=== PATIENT | female | born 1940 | race Two or more races ===

== ENCOUNTER 2020-04-14 15:40 | Outpatient (CLI) | payer OTHER | END 2020-04-14 15:48 | disposition home or self-care (01) | LOC: RAD 15:40 | PROVIDERS: ATTEND Specialist | DX: N20.0 Calculus of kidney (principal); Q65.89 Other specified congenital deformities of hip ==

== ENCOUNTER 2020-11-16 10:04 | Outpatient (CLI) | payer OTHER | END 2020-11-16 11:53 | disposition home or self-care (01) | LOC: RAD 10:04 | PROVIDERS: ATTEND Physical Medicine & Rehabilitation | DX: S96.912A Strain of unspecified muscle and tendon at ankle and foot level, left foot, initial encounter (principal); M17.12 Unilateral primary osteoarthritis, left knee ==

== ENCOUNTER 2021-05-16 10:50 | Outpatient (CLI) | payer OTHER | END 2021-05-16 10:52 | disposition home or self-care (01) | LOC: LAB 10:50 | PROVIDERS: ATTEND Specialist | DX: Z03.818 Encounter for observation for suspected exposure to other biological agents ruled out (principal) ==

== ENCOUNTER 2022-02-21 08:59 | Outpatient (CLI) | payer OTHER | END 2022-02-21 09:05 | disposition home or self-care (01) | LOC: TOM 08:59 | PROVIDERS: ATTEND Pulmonary Function Technologist | DX: J84.9 Interstitial pulmonary disease, unspecified (principal); M81.0 Age-related osteoporosis without current pathological fracture; J84.10 Pulmonary fibrosis, unspecified | CPT/HCPCS: 71260; Q9965 ==

== ENCOUNTER → 2022-10-23 | Outpatient (CLI) | payer OTHER | END | disposition home or self-care (01) | LOC: TOM 12:14 | PROVIDERS: ATTEND Specialist | DX: J84.10 Pulmonary fibrosis, unspecified (principal); I67.2 Cerebral atherosclerosis ==

== ENCOUNTER 2024-10-07 11:39 | Outpatient (CLI) | payer OTHER | END 2024-10-07 11:45 | disposition home or self-care (01) | LOC: TOM 11:39 | PROVIDERS: ATTEND Specialist | DX: I63.12 Cerebral infarction due to embolism of basilar artery (principal); J45.998 Other asthma ==